=== PATIENT | male | born 1965 | race Two or more races ===

== ENCOUNTER 2025-08-26 19:41 | Emergency (ER) | payer OTHER ==
[~2025-08-26] VITALS: Ht 182.9 cm; Wt 127.0 kg
[~2025-08-26 19:41] MED LIST: LOVENOX100 MG/1 M SUBCUTANEO
[2025-08-26] MEDS ORDERED: SPIRONOLACTONE50 MG PO (20:46)
[2025-08-26] MEDS ORDERED: METFORMIN HCL500 M3 PO (20:46)
[2025-08-26] MEDS ORDERED: PIPERACILLIN/TAZOBACTAM SODIUM 3.375 GM VIAL IV ONE ×2 (21:15→21:31)
[2025-08-26] MEDS ORDERED: 0.9 % SODIUM CHLORIDE 1,000 ML IV SCH (21:15)
[2025-08-26] MEDS ORDERED: FAMOTIDINE/PF 20 MG/2 ML VIAL IV ONE (21:30)
[2025-08-26] MEDS ORDERED: KETOROLAC TROMETHAMINE 30 MG VIAL IU ONE (21:30)
[2025-08-26] MEDS ORDERED: KETOROLAC TROMETHAMINE 30 MG VIAL ONE (21:31)
[2025-08-26] MEDS ORDERED: FAMOTIDINE/PF 20 MG/2 ML VIAL ONE (21:31)
[2025-08-26 22:39] LABS: ERYTHROCYTE SEDIMENTATION RATE 71 mm/hr (0-20)
[2025-08-26 22:41] LABS: BASO % 1.2 % (0.1-1.2); EOS # 0.63 (0.04-0.54); EOS % 10.5 % (0.7-7.0); LYMPH # 1.98 (1.18-3.74); LYMPH % 33.1 % (19.3-53.1); MEAN PLATELET VOLUME 10.20 fl (9.4-12.4); MONO # 0.51 (0.24-0.82); MONO % 8.5 % (4.7-12.5); NEUT # 2.75 (1.56-6.13); NEUT % 46.0 % (34.0-71.1); RED CELL DISTRIBUTION WIDTH 14.3 % (11.6-14.4)
[2025-08-26 23:17] LABS: ALT/SGPT 46.0 U/L (12-78); AST/SGOT 42.0 U/L (15-37); BILIRUBIN TOTAL 0.49 mg/dL (0.3-1.2); BUN CREA RATIO 15.0 (7.0-25.0); CKMB 1.4 NG/ML (0.5-3.6); CREATININE SERUM 1.48 mg/dL (0.70-1.30); GFR 48.82; GLOBULINA 4.7 G/DL (2.4-3.5)
[2025-08-26 23:25] LABS: GLUCOSE FASTING 235.0 mg/dL (65-100); OSMOLALITY SERUM 285.0 MOSM/KG (275-295)
[2025-08-26 23:44] LABS: URINE APPEARANCE Clear; URINE BILIRRUBIN Negative (NEGATIVE); URINE BLOOD Negative; URINE COLOR Yellow; URINE KETONE Trace (NEGATIVE); URINE LEUKOCYTE Negative; URINE NITRATE Negative; URINE PROTEIN Negative (NEGATIVE); URINE UROBILINOGEN 0.2 E.U./dl
[2025-08-26 23:48] LABS: URINE BACTERIA 28.7 uL (0.0-1933); URINE CAST 4.83 uL (0.0-1.40); URINE EPITHELIAL CELLS 5.3 uL (0.0-38.8); URINE RBC 2.3 uL (0.0-20.8)
[2025-08-26 23:50] LABS: URINE GLUCOSE 500 MG/DL (NEGATIVE); URINE WBC 1.3 uL (0.0-23.2)
[2025-08-27 00:31] LABS: COVID-19 AG NEGATIVE (NEGATIVE)
[2025-08-27] MEDS ORDERED: AMOX-CLAV 875-1 EACH PO (01:01)
[2025-08-27] MEDS ORDERED: KETO10TA2 PO (01:01)
== END 2025-08-27 02:40 | disposition home or self-care (01) ==
LOC: ER 19:41
PROVIDERS: Student in an Organized Health Care Education/Training Program
DX: L03.116 Cellulitis of left lower limb (principal); B34.9 Viral infection, unspecified; E78.00 Pure hypercholesterolemia, unspecified; I10 Essential (primary) hypertension; E11.9 Type 2 diabetes mellitus without complications; Z79.84 Long term (current) use of oral hypoglycemic drugs; Z20.822 Contact with and (suspected) exposure to COVID-19

== ENCOUNTER 2025-08-29 07:54 | Emergency (ER) | payer OTHER ==
[~2025-08-29] VITALS: Ht 177.8 cm; Wt 128.4 kg
[~2025-08-29 07:54] MED LIST changes: +AMOX-CLAV 875-1 EACH PO; +KETO10TA2 PO; +METFORMIN HCL500 M3 PO; +SPIRONOLACTONE50 MG PO
[2025-08-29] MEDS ORDERED: KETOROLAC TROMETHAMINE 30 MG VIAL ONE (08:38)
[2025-08-29] MEDS ORDERED: FAMOTIDINE/PF 20 MG/2 ML VIAL ONE (08:38)
[2025-08-29] MEDS ORDERED: DEXAMETHASONE SODIUM PHOSPHATE 4 MG/ML VIAL ONE (08:38)
[2025-08-29] MEDS ORDERED: DEXAMETHASONE SODIUM PHOSPHATE 4 MG/ML VIAL IV ONE (08:45)
[2025-08-29] MEDS ORDERED: 0.9 % SODIUM CHLORIDE 1,000 ML IV SCH (08:45)
[2025-08-29] MEDS ORDERED: KETOROLAC TROMETHAMINE 30 MG VIAL IU ONE (08:45)
[2025-08-29] MEDS ORDERED: FAMOTIDINE/PF 20 MG/2 ML VIAL IV ONE (08:45)
[2025-08-29 09:09] LABS: ALT/SGPT 32.0 U/L (12-78); AST/SGOT 27.0 U/L (15-37); BILIRUBIN TOTAL 0.54 mg/dL (0.3-1.2); BUN CREA RATIO 17.0 (7.0-25.0); CREATININE SERUM 1.54 mg/dL (0.70-1.30); GFR 46.63; GLOBULINA 4.7 G/DL (2.4-3.5); GLUCOSE FASTING 150.0 mg/dL (65-100); OSMOLALITY SERUM 291.0 MOSM/KG (275-295)
[2025-08-29 09:15] LABS: BASO % 0.8 % (0.1-1.2); EOS # 0.70 (0.04-0.54); LYMPH # 1.15 (1.18-3.74); LYMPH % 28.8 % (19.3-53.1); MEAN PLATELET VOLUME 9.90 fl (9.4-12.4); MONO # 0.31 (0.24-0.82); MONO % 7.8 % (4.7-12.5); NEUT # 1.78 (1.56-6.13); NEUT % 44.6 % (34.0-71.1); RED CELL DISTRIBUTION WIDTH 14.3 % (11.6-14.4)
[2025-08-29 09:31] LABS: EOS % 17.5 % (0.7-7.0)
[2025-08-29 10:16] LABS: URINE APPEARANCE Clear; URINE BILIRRUBIN Negative (NEGATIVE); URINE BLOOD Negative; URINE COLOR Yellow; URINE GLUCOSE Negative (NEGATIVE); URINE KETONE Negative (NEGATIVE); URINE LEUKOCYTE Negative; URINE NITRATE Negative; URINE PROTEIN Negative (NEGATIVE); URINE UROBILINOGEN 0.2 E.U./dl
[2025-08-29 10:18] LABS: URINE BACTERIA 7.1 uL (0.0-1933); URINE EPITHELIAL CELLS 4.2 uL (0.0-38.8); URINE WBC 3.5 uL (0.0-23.2)
[2025-08-29 10:21] LABS: URINE CAST 0.43 uL (0.0-1.40); URINE RBC 0.8 uL (0.0-20.8)
[2025-08-29] MEDS ORDERED: CALCIUM GLUCONATE 100 MG/ML VIAL ONE (10:46)
[2025-08-29] MEDS ORDERED: CALCIUM GLUCONATE 100 MG/ML VIAL IV ONE (11:00)
[2025-08-29] MEDS ORDERED: DOLOGESIC-DF 51 EACH PO (13:10)
[2025-08-29] MEDS ORDERED: NEURONTIN300 MG PO (13:10)
[2025-08-29] MEDS ORDERED: PEPCID AC20 MG PO (13:10)
== END 2025-08-29 13:50 | disposition home or self-care (01) ==
LOC: ER 07:54
PROVIDERS: Student in an Organized Health Care Education/Training Program
DX: N18.30 Chronic kidney disease, stage 3 unspecified (principal); K74.60 Unspecified cirrhosis of liver; R10.9 Unspecified abdominal pain; E11.9 Type 2 diabetes mellitus without complications; Z79.84 Long term (current) use of oral hypoglycemic drugs